=== PATIENT | female | born 2000 | race Caucasian/White ===

== ENCOUNTER → 2020-07-23 08:50 | Outpatient (CLI) | payer OTHER, SELFPAY ==
--- NOTE | 2020-07-23 08:56 | US_ITS ---
STUDY: ABDOMINAL ULTRASOUND - RIGHT UPPER QUADRANT REASON FOR VISIT: Female, 19 years old RUQ PAIN, NAUSEA AFTER EATING X 1 WEEK TECHNIQUE: Ultrasound evaluation of the right upper quadrant was performed with real-time and static lemus-scale imaging. TECHNICAL QUALITY: Adequate. COMPARISON: None. FINDINGS: Liver: The liver measures 17.1 cm. There is normal echogenicity of the liver. The bile ducts are within normal limits. There is hepatic color flow. The direction of portal flow is hepatopetal. There is no demonstrated mass lesion. Gallbladder: Normal distended gallbladder. The gallbladder wall measures 1.3 mm. There is a negative sonographic Aguila''s sign. There is no pericholecystic fluid. There are no gallstones. Common Bile Duct (C.B.D.): The common bile duct measures 2.0 mm. Pancreas: Normal size of the head, body and tail of the pancreas. There is normal echogenicity of the pancreas. There is no demonstrated pancreatic mass or cyst. Right Kidney: Normal size of the right kidney. The right kidney measures 11 cm x 5.6 cm x 4.3 cm. Normal renal cortex. The right cortex measures 1.5 cm. There is no demonstrated renal mass or cyst. There is no right hydronephrosis. US/Abdomen Limited IMPRESSION: Normal right upper quadrant ultrasound examination. Electronically Signed: Sameer Taylor, at 15:47 EDT , Service support ,
== END ==
LOC: US 08:51
PROVIDERS: PCP Nurse Practitioner; Referring Provider Internal Medicine; Visit Provider Internal Medicine
DX: R10.11 Right upper quadrant pain (principal)
CPT/HCPCS: 76705

== ENCOUNTER 2020-10-20 15:43 | Emergency (ER) | payer OTHER, SELFPAY ==
[2020-10-20 15:44] VITALS: BP 161/101; PULSE 118; RESP 16; TEMP 36.2; O2SAT 98; BMI 44.0
--- NOTE | 2020-10-20 16:04 | ED.DCSUM_ITS ---
History of Present Illness Chief Complaint: Nausea/Vomiting Informant: Patient Narrative: Patient is a 19-year-old G2, P1 at approximately 15 weeks who presents to the emergency department for nausea/vomiting. She states she has not been able to keep anything down since Monday. She has been taking Zofran as well as likely just. This has not been giving her significant relief. She called her DIRECTOR OF PARTNER MARKETING today who referred her to the emergency department. She states she had a mild headache but otherwise has no other symptoms. She did have some vomiting with her previous but never had to come to the emergency department for it. Her last did ended in section. She denies any issues with this . She denies any chest pain, shortness of breath or cough. No fevers or chills. No abdominal pain. No diarrhea. No urinary symptoms. No vaginal bleeding. Denies smoking, drinking. Past Medical History - Allergies and Home Meds Allergies/Adverse Reactions: Allergies No Known Allergies Allergy (Verified 10/20/20 15:45) Primary Care Physician: Octavia Ruiz ASSURANCE AUDITOR, ASSURANCE AUDITOR-C [Primary Care Provider] - Prior records reviewed: Yes Past Medical History: None Surgical History: - - section Smoking Status: Never smoker Review of Systems All systems negative except as indicated General: Denies: Chills, Fever, Sweats Eyes: Denies: Visual changes - bilaterally, Diplopia ENT: Denies: Rhinorrhea, Sore throat Cardiovascular: Denies: Chest pain, Palpitations Respiratory: Denies: Dyspnea, Cough, Dyspnea on exertion Gastrointestinal: Reports: Nausea, Vomiting. Denies: Abdominal pain, Diarrhea, Melena, Hematochezia Genitourinary: Denies: Dysuria, Hematuria, Frequency Musculoskeletal: Denies: Back pain, Extremity Pain Skin: Denies: Rash, Wounds Neurological: Reports: Headache. Denies: Weakness, Numbness Physical Exam Vital Signs/Narrative: Vital Signs Temp Pulse Resp BP Pulse Ox 10/20/20 15:44 97.2 F L 118 H 16 161/101 H 98 Inital Vital Signs reviewed: Yes General: Well nourished, Well developed, No Acute Distress Head: Normocephalic, Atraumatic Eyes: Perrl, EOMI ENT: Moist mucous membranes, No rhinorrhea Neck: Supple, Nontender Cardiovascular: Regular rhythm, No murmurs, Tachycardia Respiratory: No distress, CTA bilaterally, Chest nontender Abdomen: Soft, Nontender, Nondistended, Normal bowel sounds Back: Nontender, Normal Inspection Extremities: Nontender. Negative for: Edema, Calf Tenderness Skin: Normal color, No rash Neurological: Alert, Oriented x3, Cranial nerves II-XII grossly intact, Normal Strength, Normal Sensation Psychological: Normal affect, Normal Mood Diagnostic/Tx/Re-eval - Medical Decision Making Patient presents emergency department for nausea/vomiting at 15 weeks . Upon arrival to the emergency department she is mildly tachycardic but otherwise has normal vital signs. She is in no acute distress. Will check basic lab work to evaluate electrolyte status. We will give IV fluids and Zofran. She has been on Zofran previously. Patient did not have any episodes of vomiting throughout ED stay. She did have ketonuria so she was given a second bolus of D5 normal saline. Patient going to contact her DIRECTOR OF PARTNER MARKETING in the morning and discuss possibly increasing her Diclegis. She does feel comfortable being discharged home at this time. She otherwise has been stable throughout ED stay. Will discharge home in stable condition. All questions were answered. ED Disposition - Plan for ED Patient: Disposition: Home or Assisted Living Diagnosis: Vomiting affecting Instructions: ED Hyperemesis Gravidarum Referrals: Octavia Ruiz NP, ASSURANCE AUDITOR-C [Primary Care Provider] - Additional Instructions: Please contact your DIRECTOR OF PARTNER MARKETING tomorrow for follow-up exam and potentially increase nausea medications.
[2020-10-20] MEDS: Ondansetron 4 MG/2 ML Vial IV (16:33)
[2020-10-20] MEDS: 0.9% Normal Saline 1,000 ML 999 ML IV (16:33)
[2020-10-20 16:41] LABS: Absolute Lymphocyte Count 1.28 X10^3/uL (0.83-4.51); Absolute Neutrophil Count 9.8 X10^3/uL (2.0-7.7); Basophil# 0.03 X10^3/uL; Basophil% 0.3 % (0-1); Eosinophil# 0.16 X10^3/uL; Eosinophils% 1.4 % (0-5); Hematocrit 36.4 % (37-47); Hemoglobin 11.9 g/dL (12.0-15.0); Lymphocyte # 1.28 X10^3/ul (4.0); Lymphocyte % 10.9 % (19-41); Mean Corp Hgb Conc 32.7 g/dL (32-36); Mean Corpuscular Volume 82.5 fL (81-99); Monocyte# 0.46 X10^3/uL; Monocyte% 3.9 % (0-10); NRBC Flagged by Analyzer 0 % (0-5); Neutrophil % 83.2 % (47-70); Platelet Count 330 K/mm3 (150-450); RBC Distribution Width CV 13.3 % (11.6-14.6); Red Blood Count 4.41 M/mm3 (4.2-5.4); White Blood Count 11.8 K/mm3 (4.4-11.0)
[2020-10-20 16:57] LABS: ALB/GLOB Ratio 0.8 RATIO (0.9-2.4); AST(SGOT) 9 U/L (15-37); Alanine Aminotransfer ALT/SGPT 14 U/L (13-56); Albumin, Serum 3.2 g/dL (3.2-5.0); Alkaline Phosphatase 80 U/L (45-117); Anion Gap 10 (5-15); BUN 8 mg/dL (7-18); BUN/Creat Ratio 14.6 RATIO (10-20); Calcium,Total 8.9 mg/dL (8.5-10.1); Chloride 107 mmol/L (98-107); Creatinine, Serum 0.55 mg/dL (0.55-1.02); EST Glomerular Filtration Rate 147 mL/min (>60); Est Glom Filt Rate - Afr Amer 178 mL/min (>60); Estimated Creatinine Clearance 133.84 ml/min; Globulin 4.1 g/dL (2.2-4.2); Glucose 71 mg/dL (74-106); Potassium 3.5 mmol/L (3.5-5.1); Protein, Total 7.3 g/dL (6.4-8.2); Sodium Level 137 mmol/L (136-145)
[2020-10-20 17:49] LABS: Squamous Epithelial Cells - UA 0 SEEN /hpf (5-10)
[2020-10-20 18:00] VITALS: BP 139/69; PULSE 96; RESP 16; O2SAT 100
[2020-10-20 18:02] LABS: Color, Urine Yellow (Yellow); Glucose, Dipstick Normal (Normal); Ketone-Dipstick 150 mg/dl (Negative); Leukocyte Esterase-Dipstick 25 /ul (Negative); Nitrite-Dipstick Negative (Negative); Occult Blood-Urine 10 /ul (Negative); Protein-Dipstick 30 mg/dl (Negative); Specific Gravity, Urine 1.025 (1.002-1.030); Urine Bilirubin Dipstick 1 mg/dL (Negative); Urine Clarity Sl. Cloudy (Clear); Urine Urobilinogen 4 mg/dl (Normal)
[2020-10-20] MEDS: Dextrose 5%/0.9% NaCl 1,000 ML 250 ML IV (18:16)
[2020-10-20 18:20] LABS: Bacteria 2+ /hpf (None Seen); Mucous, Urine 4+ /hpf (<or=2+); Red Blood Cells-Urine 0-5 SEEN /hpf (0-5); White Blood Cells 0-5 SEEN /hpf (0-5)
[2020-10-20 21:19] VITALS: BP 123/75; PULSE 86; RESP 16; O2SAT 98
== END 2020-10-20 21:20 | disposition home or self-care (01) ==
PROVIDERS: Emergency Provider Emergency Medicine; PCP Nurse Practitioner
DX: O21.9 Vomiting of pregnancy, unspecified (principal); Z3A.15 15 weeks gestation of pregnancy
CPT/HCPCS: 80053; 81001; 85025; 96361; 96374; 99283; J7030; A4216; J2405

== ENCOUNTER 2020-11-24 18:31 | Outpatient (CLI) | payer OTHER, SELFPAY ==
[2020-11-24] VITALS (8 sets, daily range): BP systolic 119–134; BP diastolic 56–82; PULSE 85–100; TEMP -17.7–37.1; O2SAT 97; BMI 44.1
[2020-11-24] MEDS: Lactated Ringers 1,000 ML 999 ML IV (19:55)
[2020-11-24 20:05] LABS: Hematocrit 34.1 % (37-47); Hemoglobin 11.2 g/dL (12.0-15.0); Mean Corp Hgb Conc 32.8 g/dL (32-36); Mean Corpuscular Hgb 27.3 pg (27.0-32.0); Mean Platelet Vol. 10.4 fl (6.2-12.0); Platelet Count 380 K/mm3 (150-450); RBC Distribution Width CV 13.7 % (11.6-14.6); RBC Distribution Width SD 40.9 fl (35.1-43.9); Red Blood Count 4.11 M/mm3 (4.2-5.4); White Blood Count 12.4 K/mm3 (4.4-11.0)
[2020-11-24] MEDS: Ondansetron 4 MG/2 ML Vial IV (20:19)
[2020-11-24 20:21] LABS: ALB/GLOB Ratio 0.7 RATIO (0.9-2.4); AST(SGOT) 6 U/L (15-37); Alanine Aminotransfer ALT/SGPT 11 U/L (13-56); Albumin, Serum 2.8 g/dL (3.2-5.0); Alkaline Phosphatase 79 U/L (45-117); Anion Gap 10 (5-15); BUN 5 mg/dL (7-18); BUN/Creat Ratio 11.7 RATIO (10-20); Bilirubin, Direct 0.06 mg/dL (0.00-0.30); Calcium,Total 8.9 mg/dL (8.5-10.1); Chloride 108 mmol/L (98-107); Creatinine, Serum 0.43 mg/dL (0.55-1.02); EST Glomerular Filtration Rate 196 mL/min (>60); Est Glom Filt Rate - Afr Amer 237 mL/min (>60); Globulin 3.9 g/dL (2.2-4.2); Glucose 73 mg/dL (74-106); Potassium 3.2 mmol/L (3.5-5.1); Protein, Total 6.7 g/dL (6.4-8.2); Sodium Level 140 mmol/L (136-145)
[2020-11-24] MEDS: 0.9 % NaCl (Sterile) Posiflush 10 mL IV (20:55)
--- NOTE | 2020-11-25 08:27 | OB.TRI.NOTE ---
History of Present Illness Date of Service: 11/24/20 Was patient seen by the physician?: No Reason For Visit: N/V, ELEVATED BLOOD PRESSURE Date of Service: 11/24/20 Final JADA: 04/12/21 Final JADA Source: US <20 weeks Gestational age: 20 Weeks and 2 Days Allergies No Known Allergies Allergy (Verified 11/24/20 19:32) Laboratory Studies: Laboratory Tests 11/24/20 11/24/20 Range/Units 19:55 19:55 WBC 12.4 H (4.4-11.0) K/mm3 RBC 4.11 L (4.2-5.4) M/mm3 Hgb 11.2 L (12.0-15.0) g/dL Hct 34.1 L (37-47) % MCV 83.0 (81-99) fL MCH 27.3 (27.0-32.0) pg MCHC 32.8 (32-36) g/dL RDW Std Deviation 40.9 (35.1-43.9) fl RDW Coeff of Jonnathan 13.7 (11.6-14.6) % Plt Count 380 (150-450) K/mm3 MPV 10.4 (6.2-12.0) fl Sodium 140 (136-145) mmol/L Potassium 3.2 L (3.5-5.1) mmol/L Chloride 108 H (98-107) mmol/L Carbon Dioxide 22.0 (21.0-32.0) mmol/L Anion Gap 10 (5-15) BUN 5 L (7-18) mg/dL Creatinine 0.43 L (0.55-1.02) mg/dL Estim Creat Clear Calc 171.20 ml/min Est GFR (MDRD) Af Amer 237 (>60) mL/min Est GFR (MDRD) Non-Af 196 (>60) mL/min BUN/Creatinine Ratio 11.7 (10-20) RATIO Glucose 73 L (74-106) mg/dL Calcium 8.9 (8.5-10.1) mg/dL Total Bilirubin 0.30 (0.20-1.00) mg/dL Direct Bilirubin 0.06 (0.00-0.30) mg/dL AST 6 L (15-37) U/L ALT 11 L (13-56) U/L Alkaline Phosphatase 79 (45-117) U/L Total Protein 6.7 (6.4-8.2) g/dL Albumin 2.8 L (3.2-5.0) g/dL Globulin 3.9 (2.2-4.2) g/dL Albumin/Globulin Ratio 0.7 L (0.9-2.4) RATIO Physical Exam Vitals: Vital Signs Temp Pulse BP Pulse Ox 98.5 F 88 134/75 H 97 11/24/20 20:01 11/24/20 20:31 11/24/20 20:31 11/24/20 20:01 NST - FHR Rate Baby A Baseline: 150 Impression/Plan 19 YOF @ 20w w/ n/v and elevated bp in ED. Bp appropriate on L&D, f/u in office as scheduled. NO evidence of preeclampsia
== END 2020-11-24 21:00 | disposition home or self-care (01) ==
LOC: WPOUT 18:34 → OBT 18:34
PROVIDERS: PCP Nurse Practitioner; Visit Provider Obstetrics & Gynecology
DX: O26.892 Other specified pregnancy related conditions, second trimester (principal); Z3A.20 20 weeks gestation of pregnancy; R11.2 Nausea with vomiting, unspecified; R03.0 Elevated blood-pressure reading, without diagnosis of hypertension
CPT/HCPCS: 96361; 96374; 96375; 36415; 59025; 59050; 80053; 80076; 85027; 99218; G0378

== ENCOUNTER 2021-03-23 00:20 | Outpatient (CLI) | payer OTHER, SELFPAY ==
[2020-11-24 19:23] VITALS: BMI 44.1
[2021-03-23 00:42] VITALS: BP 110/61; PULSE 86; TEMP 36.5
[2021-03-23 00:46] VITALS: O2SAT 98
[2021-03-23 00:50] VITALS: BMI 46.5
--- NOTE | 2021-03-23 01:13 | OB.TRI.NOTE ---
HPI - General HPI Narrative ADITYA DOMINGUEZ, is a 20 F who presents for decreased movement at 37w1d. Maternal Data Information Final JADA: 04/12/21 Final JADA Source: US <20 weeks Gestational age: 37w1d PFSH PFSH Home Medications Prenatabs FA 1 tab PO DAILY 11/14/16 [History Last Taken 03/22/21 18:00] iron 03/23/21 [History Last Taken 03/22/21 18:00] Allergy/AdvReac Type Severity Reaction Status Date / Time No Known Allergies Allergy Verified 03/23/21 00:52 Social History Smoking Status: Former smoker History Elective abortions Hx Para 0 Spontaneous abortions Hx # Term Pregnancies Ectopic pregnancies Hx # Pregnancies Multiple births # of living children NST FHR Rate Baby A Variability:: Moderate Accelerations:: 15 x 15 Decelerations:: None NST Reactive:: Yes Uterine Activity:: Irregular, mild Assessment & Plan (1) Decreased movement: PLAN: 1) Reactive NST 2) D/C home
== END 2021-03-23 01:27 | disposition home or self-care (01) ==
LOC: WPOUT 00:31 → WP 00:31
PROVIDERS: PCP Nurse Practitioner; Visit Provider Advanced Practice Midwife
DX: O36.8130 Decreased fetal movements, third trimester, not applicable or unspecified (principal); Z3A.37 37 weeks gestation of pregnancy; Z87.891 Personal history of nicotine dependence
CPT/HCPCS: 59025; 59050; 99218; G0378

== ENCOUNTER 2021-04-05 09:20 | Inpatient (IN) | payer OTHER, SELFPAY ==
[2020-11-24 19:23] VITALS: BMI 44.1
--- NOTE | 2021-03-31 11:21 | PCM.HP.BLA ---
History and Physical Date of Admission: 04/05/21 HPI: The patient is a 20 year old female presenting for pre-operative visit. She is scheduled for , for previous c/s and 39 weeks gestation on 04/05/21. Procedure discussed along with risks, benefits and complications. Other alternatives discussed for management. Consent form signed? Yes. ? ? PAST MEDICAL HISTORY PAST MEDICAL HISTORY Diagnosis Date ? Anemia complicating , third trimester 01/19/2021 ? Depression 06/29/2015 ? Overweight 06/23/2011 ? PCOS (polycystic ovarian syndrome) 10/28/2015 ? Primary dysmenorrhea 10/28/2015 ? ? PAST SURGICAL HISTORY PAST SURGICAL HISTORY Procedure Laterality Date ? SECTION HX ? 02/25/2017 ? ? ? CURRENT MEDICATIONS Current Outpatient Medications Medication Sig Dispense Refill ? ferrous sulfate 325 mg (65 mg iron) tablet Take 1 tablet by mouth daily with breakfast. 30 tablet 3 ? cetirizine (ZYRTEC) 10 mg tablet Take 1 tablet by mouth once daily. 30 tablet 1 ? Novhzdrb-Hy-Lzp-Fe-FA ( VITAMIN) tab Take 1 tablet by mouth. ? ? ? No current facility-administered medications for this visit. ? ? ALLERGIES: Seasonal Allergies ? PERSONAL HISTORY: SOCIAL HISTORY Social History ? Tobacco Use ? Smoking status: Never Smoker ? Smokeless tobacco: Never Used Vaping Use ? Vaping Use: Never used Substance Use Topics ? Alcohol use: No ? Drug use: No ? FAMILY HISTORY: FAMILY HISTORY FAMILY HISTORY Problem Relation Age of Onset ? Thyroid Mother ? ? other (hysterectomy) Mother ? ? No Known Problems Father ? ? No Known Problems Sister ? ? No Known Problems Sister ? ? No Known Problems Brother ? ? Thyroid Maternal Grandmother ? ? Graves disease ? Hypertension Maternal Grandmother ? ? Diabetes Maternal Grandmother ? ? Hypertension Paternal Grandfather ? ? Breast Cancer Other ? ? great aunt in early 30s ? ? REVIEW OF SYMPTOMS: GENERAL: denies fevers or chills ENDOCRINOLOGY: has not been on steroids Cardiology : denies palpitations or chest pain Respiratory: denies SOB or cough Hematology: denies history of prolonged bleeding or easy bruising or VTE Allergy: Denies history of personal or family history of allergy to anesthesia ? PHYSICAL EXAMINATION: ? VITALS: Last menstrual period 07/06/2020. ? GENERAL: The patient is well nourished, well hydrated in no acute distress. , The patient is oriented to time, place, and person. NECK: Supple. No lynphadenopathy, normal thyroid, no thyromegaly. LUNGS: Clear to auscultation bilaterally. no wheezes, rhonchi or rales HEART: Regular rate and rhythm, Normal heart sounds and No murmurs or gallops abd- soft, nontender, gravid ? IMPRESSION: Estimated Date of Delivery: 04/12/21 for repeat c/s ? PLAN: The risks/benefits/alternatives and personal involved for the planned delivery were reviewed with the patient. Her questions were answered to her satisfaction and she desires to proceed. Consent was signed. I reviewed with her postop instructions and expectations. ? ? //I have reviewed and updated past medical and surgical history, medications and allergies . This H&P was completed in my office on 03/31/2021. Assessment & Plan Assessment/Plan (1) 39 weeks gestation of : (2) Previous delivery affecting : (3) Supervision of other high risk pregnancies, third trimester: (4) Maternal obesity syndrome in third trimester: (5) Obesity, Class III, BMI 40-49.9 (morbid obesity):
[2021-04-05] VITALS (13 sets, daily range): BP systolic 93–121; BP diastolic 43–70; PULSE 70–89; RESP 12–18; TEMP 36.1–36.7; O2SAT 95–99; BMI 47.4
[2021-04-05] MEDS: Lactated Ringers 1,000 ML 999 ML IV (09:50)
[2021-04-05 10:47] LABS: Absolute Lymphocyte Count 1.89 X10^3/uL (0.83-4.51); Basophil# 0.05 X10^3/uL; Basophil% 0.5 % (0-1); Eosinophil# 0.32 X10^3/uL; Eosinophils% 2.9 % (0-5); Hematocrit 34.2 % (37-47); Lymphocyte # 1.89 X10^3/ul (0.83-4.51); Lymphocyte % 17.3 % (19-41); Mean Corp Hgb Conc 32.2 g/dL (32-36); Mean Corpuscular Hgb 27.4 pg (27.0-32.0); Mean Corpuscular Volume 85.1 fL (81-99); Mean Platelet Vol. 10.4 fl (6.2-12.0); Monocyte% 5.5 % (0-10); NRBC Flagged by Analyzer 0 % (0-5); Neutrophil # 7.98 X10^3/uL (2.7-7.7); Neutrophil % 73.1 % (47-70); Platelet Count 366 K/mm3 (150-450); RBC Distribution Width CV 15.7 % (11.6-14.6); RBC Distribution Width SD 48.1 fl (35.1-43.9); Red Blood Count 4.02 M/mm3 (4.2-5.4); White Blood Count 10.9 K/mm3 (4.4-11.0)
[2021-04-05] MEDS: Acetaminophen 500 MG Tablet 1000 MG PO ×3 (11:00→22:17)
[2021-04-05] MEDS: Lactated Ringers 1,000 ML 150 ML IV (11:00)
[2021-04-05] MEDS: Sodium Citrate/Citric Acid 30 ML UDC PO (11:53)
--- NOTE | 2021-04-05 12:53 | EX.PCM.OBRPT ---
Assessment & Plan (1) 39 weeks gestation of : (2) Previous delivery affecting : (3) Supervision of other high risk pregnancies, third trimester: (4) Maternal obesity syndrome in third trimester: (5) Obesity, Class III, BMI 40-49.9 (morbid obesity): Maternal Data Information Final JADA: 04/12/21 Gestational age: 39 0/7 Details Operative Information Date of Procedure: 04/05/21 Pre-Operative Diagnosis: previous c/s Post-Operative Diagnosis: same Indications for : Repeat Elective Classification: Scheduled Procedure Type: low transverse corrections counselor #1: Yogi Johnson Type of Anesthesia: Spinal Special Medications: duramorph Antibiotic Given: Ancef 3 grams IV x1 Drain: Nicholson to straight drain Estimated Blood Loss: 800 Fluids Replaced: 1000 Procedure Start Time: 12:22 Procedure Stop Time: 12:58 Time of Delivery: 12:27 Findings Description of Procedure: The patient was taken to the operating room. She was prepped and draped in the dorsal supine position with a leftward tilt. A Pfannenstiel skin incision was made approximately 2 cm above the symphysis pubis and carried through to underlying layer fascia with the scalpel. The fascia was incised incised in the midline and extended laterally with the Estevez scissors. The fascia was dissected off the rectus muscles with blunt and sharp dissection. The rectus muscles were in the midline and the peritoneum was entered bluntly. The peritoneal incision was stretched and the bladder blade was placed. The Felipe O retractor was then placed in the usual fashion. Hand was placed around the bottom portion of the retractor to make sure no bowel or other abdominal contents were trapped underneath it. The uterine incision was made in a low transverse fashion with the scalpel and extended superiorly and inferiorly with blunt dissection. The amniotic membranes were ruptured bluntly and clear amniotic fluid returned. The 's head was brought to the incision in the flexed position but was unable to be engaged and delivered with just fundal traction. The vacuum was placed on the flexion point and pressure created 550 mmHg. I pulled with one pull and no pop offs with some fundal pressure in the head then easily delivered and the vacuum was removed. The remainder of the infant was delivered with gentle traction and fundal pressure in the standard fashion. The mouth and nares were bulb suctioned. The cord was clamped and cut as the infant was stimulated. Cord clamping was delayed. The infant was handed off to the waiting nursing staff. The placenta was delivered with fundal massage and gentle traction in the standard fashion. The uterus was exteriorized and cleared of all clots and debris. The cervix was dilated with a ring forcep. The uterine incision was closed with #1 Vicryl in a running locked fashion. A second layer of the same suture was used in an imbricating fashion. The incision was examined and was found to be hemostatic. The uterus was placed back into the peritoneal cavity and hemostasis was again confirmed. The rectus muscles were examined and any bleeding was Bovie cauterized. The parietal peritoneum and rectus muscles were closed en bloc with an 0 Vicryl running suture. The surgical teams outer gloves were then changed. The rectus fascia was examined and any bleeding was Bovie cauterized and the rectus fascia was closed with #1 PDS suture in a running standard fashion. The subcutaneous tissue was examining and any bleeding was Bovie cauterized. The subcutaneous tissue was reapproximated with 3-0 Vicryl suture. The skin was closed in a subcuticular fashion by the BUSINESS SERVICES DIRECTOR with me present in the labor and delivery suite. I performed the remainder of the procedure with assistance. The sociology research assistant provided tissue retraction, tissue manipulation, exposure during the surgery and assistance with closure. All sponge, lap, and needle counts were correct. The patient was taken to her room for recovery in a stable condition. Presentation: Positive for Vertex Amniotic Membrane Rupture Type: Artificial Amniotic Fluid Description: Clear Placental Delivery Description: Expressed Placenta Disposition: [facility] Specimen(s) Sent to Pathology: none Cord Vessel Description: 3 Vessels Cord Entanglement: None Infant A Gender: Male (Jose) (1 minute): 8 (5 minute): 9 Delayed Cord Clamping: Yes Complications Complications: none
[2021-04-05] MEDS: Oxytocin 30 units/NS 500 ml 30 UNITS/500 ML IV.SOLN 167 UNITS IV (13:25)
[2021-04-05] MEDS: Ketorolac 30 MG/ML Syringe IV ×2 (13:38→19:55)
[2021-04-05] MEDS: Lactated Ringers 1,000 ML 100 ML IV (16:55)
[2021-04-05] MEDS: 0.9% Saline Lock 10 ML Syringe IV (19:56)
[2021-04-05] MEDS: Enoxaparin 40 MG/0.4 ML Syringe SC (22:18)
[2021-04-06] VITALS: BP 102/57; PULSE 73; RESP 16; TEMP 36.2; O2SAT 96
[2021-04-06] MEDS: Ketorolac 30 MG/ML Syringe IV ×2 (03:14→09:36)
[2021-04-06] MEDS: 0.9% Saline Lock 10 ML Syringe IV ×2 (03:15→09:37)
[2021-04-06] MEDS: Acetaminophen 500 MG Tablet 1000 MG PO ×4 (03:57→22:02)
[2021-04-06 03:59] VITALS: BP 105/58; PULSE 63; RESP 16; TEMP 36.2; O2SAT 97
[2021-04-06 05:51] LABS: Hematocrit 32.2 % (37-47); Hemoglobin 10.4 g/dL (12.0-15.0); Mean Corp Hgb Conc 32.3 g/dL (32-36); Mean Corpuscular Hgb 27.8 pg (27.0-32.0); Mean Corpuscular Volume 86.1 fL (81-99); Mean Platelet Vol. 10.1 fl (6.2-12.0); Platelet Count 301 K/mm3 (150-450); RBC Distribution Width CV 15.9 % (11.6-14.6); RBC Distribution Width SD 49.4 fl (35.1-43.9); Red Blood Count 3.74 M/mm3 (4.2-5.4); White Blood Count 13.1 K/mm3 (4.4-11.0)
[2021-04-06 08:00] VITALS: BP 98/55; PULSE 74; RESP 16; TEMP 36.3
--- NOTE | 2021-04-06 08:55 | PN.OBGYN_ITS ---
Subjective Subjective Pain controlled Objective Data Objective Data Vital Signs: Vital Signs Temp Pulse Resp BP Pulse Ox 97.2 F L 63 16 105/58 L 97 04/06/21 03:59 04/06/21 03:59 04/06/21 03:59 04/06/21 03:59 04/06/21 03:59 Oxygen Delivery Method Room Air Weight: 267 lb 9.6 oz Body Mass Index (BMI) 47.4 Intake & Output: Intake and Output for Last 24 Hours 04/04/21 04/05/21 04/06/21 23:59 23:59 23:59 Intake Total 5385.83 / 5385.83 Output Total 1999 200 / 200 Balance 3385.83 / 3385.83 -200 / -200 Lab / Micro Data Result Diagrams: 04/06/21 05:45 Labs: Laboratory Results - last 24 hr 04/05/21 09:50: WBC 10.9, RBC 4.02 L, Hgb 11.0 L, Hct 34.2 L, MCV 85.1, MCH 27.4, MCHC 32.2, RDW Std Deviation 48.1 H, RDW Coeff of Jonnathan 15.7 H, Plt Count 366, MPV 10.4, Immature Gran % (Auto) 0.700, Neut % (Auto) 73.1 H, Lymph % (Auto) 17.3 L, Fountain % (Auto) 5.5, Eos % (Auto) 2.9, Baso % (Auto) 0.5, Absolute Neuts (auto) 8.0 H, Absolute Lymphs (auto) 1.89, Nucleated RBC % 0 04/05/21 09:50: Blood Type B POSITIVE, Antibody Screen NEGATIVE 04/06/21 05:45: WBC 13.1 H, RBC 3.74 L, Hgb 10.4 L, Hct 32.2 L, MCV 86.1, MCH 27.8, MCHC 32.3, RDW Std Deviation 49.4 H, RDW Coeff of Jonnathan 15.9 H, Plt Count 301, MPV 10.1 Physical Exam Const alert, oriented x3 and no apparent distress HEENT normocephalic GI soft to palpation, non-tender and non-distended GI Narrative: fundus firm, mid & below umbilicus Incision - bandage c/d/i Extremity normal to inspection and no calf tenderness Assessment & Plan (1) Previous delivery affecting : COMMENT: POD#1 PLAN: Heme - HDS, CBC reviewed ID - AF, no signs infection - no issues GI - ADAT Routine care
[2021-04-06] MEDS: Enoxaparin 40 MG/0.4 ML Syringe SC ×2 (09:36→22:02)
[2021-04-06] MEDS: Senna/Docusate Sodium 1 Tablet PO (10:25)
--- NOTE | 2021-04-06 11:01 | CASEMGMT ---
Social Work Brief Assessment Labor and Delivery Unit Refer documentation below for further details. Date of Referral/Notification: 04/06/2021 Time of Referral: 00:50 Referred By: Marie Longoria Reason for Referral: History of anxiety and depression Date of Intervention: 04/06/2021 Time of Intervention: 09:45 Informant: Medical record and mother of baby (MOB) Assessment: SW received referral due to history of anxiety and depression. Met with MOB and FOB/, Hilda in room. Introduced role and reason for referral. MOB discussed mental health history and states never treated with medication. MOB states able to self-cope and has good support from FOB. Baby boyTheron is MOB and FOB?s second child together. MOB states 2-year-old Aishwarya is home with family. MOB reports has all needs met for baby. Reviewed signs and symptoms of Post- Depression with MOB. MOB provided with educational handouts. MOB denies any questions or concerns at this time. Nursing updated on this worker?s assessment and denied any issues/concerns. Plan: Home with resources provided No further needs requested or indicated. Dianne Nevarez, DIRECTOR MOBILE, OPTOMECHANICAL TECHNICIAN
[2021-04-06 14:00] VITALS: BP 99/51; PULSE 77; RESP 16; TEMP 36.4
[2021-04-06] MEDS: Ibuprofen 600 MG Tablet PO ×2 (16:01→22:02)
[2021-04-06 21:05] VITALS: BP 104/57; PULSE 59; RESP 18; TEMP 36.1
[2021-04-07 02:38] VITALS: BP 131/79; PULSE 75; RESP 18; TEMP 36.2
[2021-04-07] MEDS: Acetaminophen 500 MG Tablet 1000 MG PO (04:14)
[2021-04-07] MEDS: Ibuprofen 600 MG Tablet PO ×2 (04:14→09:22)
[2021-04-07 07:35] VITALS: BP 116/63; PULSE 82; RESP 16; TEMP 36.3
--- NOTE | 2021-04-07 08:19 | PCM.DC.SUM ---
Providers Date of Admission: 04/05/21 Primary Care Physician: Octavia Ruiz NP-C Reason For Visit: C SECTION/ DELIVERED Diagnosis Discharge Diagnosis (1) Status post repeat low transverse section: Status: Acute Code(s): Z98.891 - History of uterine scar from previous surgery Medications at Discharge Home Medications Prenatabs FA 1 tab PO DAILY 11/14/16 iron 03/23/21 Hospital Course Summary of Care Provided Hospital Course: Patient here for scheduled, repeat section. Hospital course was uneventful. Physical Exam Narrative Patient seen at bedside. Pain is controlled with Motrin and Tylenol PO. without difficulty. Desires discharge home today Const alert and no apparent distress General Appearance: cooperative and comfortable Exam Limitations: no limitations HEENT normocephalic Eyes General Eye: normal appearance of both eyes Neck full ROM General: normal visual inspection Chest Chest: symmetrical chest wall rise Resp normal respiratory effort and normal air movement Effort and Inspection: symmetric chest movement Auscultation: clear to auscultation bilaterally Cardio regular rate and regular rhythm GI normal to inspection, nondistended, normoactive bowel sounds Back/Spine normal ROM Extremity full ROM and no calf tenderness General Extremity: normal exam except as noted Skin no rashes or lesions noted Neuro CN's II-XII intact bilaterally Psych mental status grossly normal Weight / BMI Weight Weight: 267 lb 9.6 oz Body Mass Index (BMI) 47.4 ABG / Lab / Microbiology Data Result Diagrams: 04/06/21 05:45 D/C Instructions Discharge Diet: No restrictions May resume sexual activity in: 6-8 weeks Weight Bearing Status: Weight bearing as tolerated Lifting Restrictions: 20 lbs Call your doctor if your incision/area has: Continuous Slow Oozing, Increased Pain/ Swelling, Increased Redness, Foul Smelling Discharge and Swelling at the incision site Call your doctor if you observe: Fever of 101 or Higher, Inability to urinate, Using more than 1 pad per hour, Shortness of breath, Chest pain, Calf discomfort and Uncontrolled pain Remove Dressing in: 5 days Cleanse incision/area with: Soap & Water and Keep Dressing Clean & Dry Please Follow Up With: Marilee Beaulieu CNM When: 1 week in office for incision check or sooner if needed 6 weeks Meaningful Use Info Meaningful Use Diagnoses (Choose all that apply): None applicable Discharge Plan Admission Admit Date/Time: 04/05/21 09:20 Primary Reason for Your Visit: Repeat C/S Attending Provider: Marie Longoria Primary Care Provider: Octavia Ruiz NP Instructions Patient Instructions: After a , : Caring for Yourself Discharge Orders/Prescriptions Prescriptions: Continued Prenatabs FA 1 TABLET tablet 1 tab PO DAILY RF: 0 iron RF: 0 Referrals / Follow Up: Octavia Ruiz NP, FINISHING FRAME RUNNER-C [Primary Care Provider] - Disposition Disposition (needs filled in before D/C Order can be placed): Home, Self Care
[2021-04-07] MEDS: Senna/Docusate Sodium 1 Tablet PO (09:24)
[2021-04-07] MEDS: Enoxaparin 40 MG/0.4 ML Syringe SC (09:24)
== END 2021-04-07 11:00 | disposition home or self-care (01) | DRG 788 ==
PROVIDERS: Admitting Provider Obstetrics & Gynecology; PCP Nurse Practitioner; Visit Provider Obstetrics & Gynecology
PROC: 10D00Z1 Extraction of Products of Conception, Low, Open Approach (ICD-10-PCS; CPT 59514; principal; 2021-04-05 11:45)
DX: O65.5 Obstructed labor due to abnormality of maternal pelvic organs (principal); O34.211 Maternal care for low transverse scar from previous cesarean delivery; O99.214 Obesity complicating childbirth; E66.01 Morbid (severe) obesity due to excess calories; Z3A.39 39 weeks gestation of pregnancy; Z37.0 Single live birth; Z87.891 Personal history of nicotine dependence; Z80.3 Family history of malignant neoplasm of breast; Z82.49 Family history of ischemic heart disease and other diseases of the circulatory system; Z83.3 Family history of diabetes mellitus
CPT/HCPCS: 85025; 85027; 86850; 86900; 86901; 99218; 99251; J7120; A4216; G0378; G0463; J2405

== ENCOUNTER → 2022-07-04 | Outpatient (CLI) | payer OTHER, SELFPAY ==
[2022-07-04 10:35] LABS: Absolute Lymphocyte Count 1.97 X10^3/uL (0.83-4.51); Absolute Neutrophil Count 2.5 X10^3/uL (2.0-7.7); Basophil# 0.04 X10^3/uL; Basophil% 0.8 % (0-1); Eosinophil# 0.15 X10^3/uL; Hematocrit 38.3 % (37-47); Hemoglobin 12.2 g/dL (12.0-15.0); Lymphocyte # 1.97 X10^3/ul (0.83-4.51); Lymphocyte % 39.6 % (19-41); Mean Corp Hgb Conc 31.9 g/dL (32-36); Mean Corpuscular Hgb 27.3 pg (27.0-32.0); Mean Corpuscular Volume 85.7 fL (81-99); Mean Platelet Vol. 10.7 fl (6.2-12.0); Monocyte# 0.34 X10^3/uL; Monocyte% 6.8 % (0-10); NRBC Flagged by Analyzer 0 % (0-5); Neutrophil # 2.47 X10^3/uL (2.7-7.7); Neutrophil % 49.8 % (47-70); Platelet Count 253 K/mm3 (150-450); RBC Distribution Width CV 12.7 % (11.6-14.6); RBC Distribution Width SD 39.4 fl (35.1-43.9); RET-HE 29.5 pg (30-35); Red Blood Count 4.47 M/mm3 (4.2-5.4); Reticulocyte Count 2.17 % (0.5-1.5)
[2022-07-04 10:46] LABS: Erythrocyte Sedimentation Rate 6 mm/hr (0-30)
[2022-07-04 11:12] LABS: AST(SGOT) 19 U/L (15-37); Alanine Aminotransfer ALT/SGPT 46 U/L (13-56); Albumin, Serum 3.7 g/dL (3.2-5.0); Alkaline Phosphatase 73 U/L (45-117); CRP 2.97 mg/L (0.0-3.0); Globulin 3.5 g/dL (2.2-4.2); Protein, Total 7.2 g/dL (6.4-8.2)
[2022-07-06 09:06] LABS: AFP, Tumor Marker 2.9 ng/mL (0.0-4.7); EBV Nuclear Antigen IgG < 18.0 U/mL (0.0-17.9)
== END | disposition home or self-care (01) ==
LOC: LAB 09:31
PROVIDERS: PCP Nurse Practitioner Family; Visit Provider Nurse Practitioner Family
DX: D72.820 Lymphocytosis (symptomatic) (principal); R79.89 Other specified abnormal findings of blood chemistry
CPT/HCPCS: 36415; 80076; 82105; 85025; 85045; 85652; 86140; 86664; 86665

== ENCOUNTER 2023-03-24 07:05 | Day surgery (SDC) | payer OTHER, SELFPAY ==
[2023-03-22 16:12] LABS: Hematocrit 37.1 % (37-47); Hemoglobin 11.8 g/dL (12.0-15.0); Mean Corp Hgb Conc 31.8 g/dL (32-36); Mean Corpuscular Hgb 26.9 pg (27.0-32.0); Mean Corpuscular Volume 84.5 fL (81-99); Platelet Count 338 K/mm3 (150-450); RBC Distribution Width CV 13.2 % (11.6-14.6); RBC Distribution Width SD 40.3 fl (35.1-43.9); Red Blood Count 4.39 M/mm3 (4.2-5.4); White Blood Count 8.3 K/mm3 (4.4-11.0)
[2023-03-22 16:17] LABS: Prothrombin Time (Protime)PT. 13.4 SECONDS (11.7-14.9)
[2023-03-22 16:18] LABS: Partial Thromboplast Time 29.6 Seconds (24.1-36.2)
--- NOTE | 2023-03-23 10:15 | PCM.HP.BLA ---
History and Physical Date of Admission: 03/24/23 HPI: The patient is a 22 year old female presenting for pre-operative visit. She is scheduled for hysteroscopy D&C with IUD insertion, laparoscopic bilateral salpingectomy, for sterilization request and heavy menses with dysmenorrhea on 03/24/23. Procedure discussed along with risks, benefits and complications. Other alternatives discussed for management. Consent form signed? Yes. ? ? PAST MEDICAL HISTORY PAST MEDICAL HISTORY Diagnosis Date ? Anemia complicating , third trimester 01/19/2021 ? Depression 06/29/2015 ? Overweight 06/23/2011 ? PCOS (polycystic ovarian syndrome) 10/28/2015 ? Primary dysmenorrhea 10/28/2015 ? ? PAST SURGICAL HISTORY PAST SURGICAL HISTORY Procedure Laterality Date ? DELIVERY ONLY ? 04/05/2021 ? LTCS ? SECTION HX ? 02/25/2017 ? repeat 04/05/21 ? ? ? CURRENT MEDICATIONS Current Outpatient Medications Medication Sig Dispense Refill ? escitalopram oxalate (LEXAPRO) 10 mg tablet Take by mouth q 24 HR. ? ? ? cetirizine (ZYRTEC) 10 mg tablet Take 1 tablet by mouth once daily. 30 tablet 1 ? No current facility-administered medications for this visit. ? ? ALLERGIES: Seasonal Allergies ? PERSONAL HISTORY: SOCIAL HISTORY Social History ? Tobacco Use ? Smoking status: Never ? Smokeless tobacco: Never Vaping Use ? Vaping Use: Never used Substance Use Topics ? Alcohol use: No ? Drug use: No ? FAMILY HISTORY: FAMILY HISTORY FAMILY HISTORY Problem Relation Age of Onset ? Thyroid Mother ? ? other (hysterectomy) Mother ? ? No Known Problems Father ? ? No Known Problems Sister ? ? No Known Problems Sister ? ? No Known Problems Brother ? ? Thyroid Maternal Grandmother ? ? Graves disease ? Hypertension Maternal Grandmother ? ? Diabetes Maternal Grandmother ? ? Hypertension Paternal Grandfather ? ? Breast Cancer Other ? ? great aunt in early 30s ? ? REVIEW OF SYMPTOMS: GENERAL: denies fevers or chills ENDOCRINOLOGY: has not been on steroids Cardiology : denies palpitations or chest pain Respiratory: denies SOB or cough Hematology: denies history of prolonged bleeding or easy bruising or VTE Allergy: Denies history of personal or family history of allergy to anesthesia ? PHYSICAL EXAMINATION: ? VITALS: Last menstrual period 02/18/2023, not currently . ? GENERAL: The patient is well nourished, well hydrated in no acute distress. , The patient is oriented to time, place, and person. NECK: Supple. No lynphadenopathy, normal thyroid, no thyromegaly. LUNGS: Clear to auscultation bilaterally. no wheezes, rhonchi or rales HEART: Regular rate and rhythm, Normal heart sounds, and No murmurs or gallops ? IMPRESSION: sterilization request, menorrhagia and dysmenorhea ? PLAN: The risks/benefits/alternatives and personal involved for the planned hysteroscopy and D&C with progestin IUD insertion, and laparoscopic bilateral salpingectomy were reviewed with the patient. Her questions were answered to her satisfaction and she desires to proceed. Consent was signed. I reviewed with her postop instructions and expectations. I discussed with the patient if I am unable to safely completely remove the tubes, will perform partial salpingectomy or other sterilization method. Patient is comfortable with this plan. ? ? I have reviewed and updated past medical and surgical history, medications and allergies Assessment & Plan Assessment/Plan (1) Sterilization: (2) Menorrhagia: (3) Encounter for IUD insertion:
--- NOTE | 2023-03-24 | FALS_PTH ---
PATIENT: ADITYA DOMINGUEZ [place] [facility] [id number] AGE/SX: 22/F ROOM: RE03/24/[address]: Dr. Marie Longoria MD : 2000 BED: DIS: 03/24/2023 SPEC #: [id number] RECD: 03/24/23 10:36 STATUS: LAMIN RERonni #: [id number] [place]: 03/24/23 00:[address]: Marie Longoria DEPT: SURGICAL PATHOLOGY RECD BY: Johnathon Becerra ENTERED: 03/24/23 10:37 SP TYPE: FALL TUBES OTHR DR: Jasmin Saenz, BREAK UP WORKER-C Tissues: A - Fallopian tube B - Endometrium, NOS Procedures: Surgery Specimen Level II Surgery Specimen Level IV HEADER OPERATION: Laparoscopic salpingectomy PRE-OP DIAGNOSIS: Sterilization, heavy menses with dysmenorrhea TISSUE SUBMITTED: A - Bilateral fallopian tubes, B - Endometrial curettings MICROSCOPIC DIAGNOSIS A. Bilateral fallopian tubes, salpingectomy: Bilateral fallopian tubes, no pathologic diagnosis. B. Endometrial curettings: Proliferative endometrium. PRADIP:alec 03/27/2023 MICROSCOPIC DESCRIPTION Slides are reviewed. GROSS DESCRIPTION A - Received in fixative is one container labeled with the patient's name and designated bilateral fallopian tubes. The specimen consists of bilateral fallopian tubes including fimbrial ends. One fallopian tube measures 6.0 cm in length and up to 1.0 cm in diameter. The second fallopian tube received in three pieces measures 8.0 cm in length and up to 1.0 cm in diameter. The fallopian tubes are not identified as right or left. Sections reveal unremarkable cut surfaces. Also present in the container are two detached pieces of soft tissue including adipose tissue measuring in aggregate 2.0 x 1.5 x 0.5 cm. Synthetic Soil Blocks Pulper sections are submitted in two cassettes as follows: 1 - intact fallopian tube, 2 - second fallopian tube in multiple pieces. B - Received in fixative is one container labeled with the patient's name and designated endometrial curettings. The specimen consists of multiple fragments of hemorrhagic soft tissue that in aggregate measure 3.0 x 2.5 x 0.3 cm. The specimen is totally submitted in one cassette. / PRADIP:alec 03/24/2023 TC:4 CPT: 34764, 41810 x2
[2023-03-24 07:41] LABS: Internal QC Validated? YES +Cl - CLEAR BKGD; Pregnancy, Urine Negative Negative
[2023-03-24 07:42] VITALS: BP 126/83; PULSE 79; RESP 16; TEMP 36.6; O2SAT 100; BMI 45.3
[2023-03-24] MEDS: Lactated Ringers 1,000 ML 15 ML IV (07:45)
[2023-03-24] MEDS: Acetaminophen 500 MG Tablet 1000 MG PO (07:45)
[2023-03-24] MEDS: Ketorolac 30 MG/ML Syringe IV (07:45)
--- NOTE | 2023-03-24 09:05 | PCM.DC ---
Discharge Instructions Diet Discharge Diet: No restrictions (Increase fluid intake for the next 48 hours.) Activity Discharge Activity: May Shower and May Take a Tub Bath (in 1 week) Return to work on:: 03/29/23 May resume sexual activity in: 1 week Additional Activity Instructions:: Ambulate often the next week after surgery. Nothing in the vagina for 5 days. Dressing / Incision Call your doctor if your incision/area has: Continuous Slow Oozing, Sudden Increased Bleeding, Increased Pain/ Swelling, Increased Redness and Foul Smelling Discharge Call your doctor if you observe: Fever of 101 or Higher Cleanse incision/area with: Soap & Water (leave the skin glue on for at least 10 days, it can get wet) Follow Up Care Please Follow Up With: Marie Longoria MD When: Call [phone] for follow-up appointment as needed or send a [employer] message for nonurgent concerns. Test Results: Test results from this visit will be discussed in further detail at your follow-up appointment, if applicable. Discharge Plan Admission Primary Reason for Your Visit: tubal sterilization, D&C with IUD insertion Attending Provider: Marie Longoria Primary Care Provider: Jasmin Saenz Discharge Orders/Prescriptions Prescriptions: No Action ferrous sulfate [iron] 325 mg (65 mg iron) Tablet 325 mg PO DAILY Referrals / Follow Up: Jasmin Saenz NP-C [Primary Care Provider] - Disposition Disposition (needs filled in before D/C Order can be placed): Home, Self Care
--- NOTE | 2023-03-24 09:07 | PCM.OPRPT ---
Problems Associated Problem List Diagnoses (1) Encounter for IUD insertion: (2) Menorrhagia: (3) Sterilization: Report of Operation Pre-Operative Diagnosis: sterilization request, heavy menses Post-Operative Diagnosis: same Surgery/Procedure Performed:: Hysteroscopy D&C with Liletta IUD insertion and bilateral laparoscopic sterilization Surgeon: Marie Longoria manager medicare marketing: Jyoti Briscoe Type of Anesthesia: General Anesthesiologist: [place] Special Medications: none Specimen's removed: bilateral fallopian tubes, endometrial curettings Drains: none Estimated Blood Loss (mL): 10 Fluids Replaced: 1000 mL Description of Procedure: The patient was taken to the operating room where she was prepped and draped in the dorsolithotomy position. A weighted speculum was placed in the vagina and the anterior lip of the cervix was grasped with a tenaculum. The uterine manipulator was placed and the remainder of the instruments were removed from the vagina. Attention was turned to the abdomen. All port sites were infiltrated with 0.5% Marcaine before skin incisions were made. A 5 mm intraumbilical incision was made. The anterior abdominal wall was tented up with 2 towel clamps while a 5 mm blade less trocar and sleeve were directly inserted. Intraperitoneal placement was confirmed with the laparoscope. The pneumoperitoneum was created and the underlying abdominal contents were intact. The patient was placed in Trendelenburg. Right and left lower quadrant ports were placed under direct visualization lateral to the inferior epigastric vessels. The bowel was swept away and the above findings were noted. The Enseal device was used to clamp seal and transect the antimesenteric portions of the right tube to the cornual insertion of the uterus. The tube was amputated from the uterus and the pedicles were all confirmed to be hemostatic. The same procedure was performed on the contralateral side. The specimens were brought out through a 5 mm port. The pedicles were again examined and found to be hemostatic. The lateral ports were removed under direct visualization and no active bleeding was noted. The pneumoperitoneum was released. The skin incisions were closed with Monocryl suture in a subcuticular fashion and skin glue by the TURF FARMER with me present in the operating suite.. I removed the uterine manipulator. The cervix was serially dilated and the 5 mm hysteroscope was placed. No focal abnormalities were noted in the endometrium. Sharp D&C was performed and the endometrial curettings were handed off for pathology. The uterus sounded to 10 cm. The Liletta IUD was then inserted in the usual sterile fashion. The strings were trimmed to 2 cm. The instruments were removed from the vagina and I performed the vaginal sweep. The procedure was performed by me with assistance other than as dictated above. All sponge and needle counts were correct and the patient was taken to the recovery room in stable condition. Grafts/Implants Used: Liletta IUD Procedure Start Time: 09:12 Procedure Stop Time: 19:36 Complications none Admit VTE Documentation VTE Present on Admission: No VTE Mechan Device Prophylaxis: SCD's Reason prophylaxis not ordered:: Procedure Not Indicated
[2023-03-24] MEDS: Bupivacaine Mpf 0.5% 30 ML VIAL (09:12)
[2023-03-24] MEDS: Levonorgestrel IUD (Liletta) 1 EACH INTRA-UTER (09:34)
[2023-03-24 09:51] VITALS: BP 120/75; BP 126/83; PULSE 97; RESP 16; TEMP 36.3; O2SAT 96
[2023-03-24] MEDS: Lactated Ringers 1,000 ML 75 ML IV (09:55)
[2023-03-24 10:00] VITALS: BP 101/69; BP 126/83; PULSE 57; RESP 16; O2SAT 98
[2023-03-24 10:15] VITALS: BP 112/56; BP 126/83; PULSE 53; RESP 16; TEMP 36.6; O2SAT 97
[2023-03-24] MEDS: HYDROcodone Bitartrate/Apap 5/325 Tablet PO (10:44)
[2023-03-24 10:52] VITALS: BP 126/83
[2023-03-24 11:45] VITALS: BP 126/83; BP 132/78; PULSE 53; RESP 18; TEMP 36.4; O2SAT 99
== END 2023-03-24 11:49 | disposition home or self-care (01) ==
LOC: SDC 07:07 → AC 07:08
PROVIDERS: Anesthesiology; PCP Nurse Practitioner Family; Referring Provider Obstetrics & Gynecology; Visit Provider Obstetrics & Gynecology
PROC: (CPT 58661; principal; 2023-03-24 08:35)
PROC: 0UDB8ZZ Extraction of Endometrium, Via Natural or Artificial Opening Endoscopic (ICD-10-PCS; CPT 58558; 2023-03-24 08:35)
DX: Z30.2 Encounter for sterilization (principal); N92.0 Excessive and frequent menstruation with regular cycle; Z30.430 Encounter for insertion of intrauterine contraceptive device; N94.6 Dysmenorrhea, unspecified; D64.9 Anemia, unspecified; F32.9 Major depressive disorder, single episode, unspecified; F17.200 Nicotine dependence, unspecified, uncomplicated
CPT/HCPCS: 58558; 58300; 58661; 00840; 36415; 81025; 85027; 85610; 85730; 88302; 88305; J7120; C1760; J2405

== ENCOUNTER → 2023-08-25 | Outpatient (CLI) | payer OTHER, SELFPAY | END | disposition home or self-care (01) | PROVIDERS: PCP Nurse Practitioner Family; Referring Provider Nurse Practitioner Family; Visit Provider Nurse Practitioner Family | DX: R00.2 Palpitations (principal) | CPT/HCPCS: 93225; 93226 ==

== ENCOUNTER → 2023-09-01 | Outpatient (CLI) | payer OTHER, SELFPAY ==
--- NOTE | 2023-09-01 13:41 | US_ITS ---
STUDY: ULTRASOUND BREAST - LEFT REASON FOR EXAM: Female, 22 years old. Palpable lump left breast. TECHNIQUE: Axial and longitudinal images of the LEFT breast were performed with a high resolution ultrasound transducer. # OF IMAGES: 15 COMPARISON: None. FINDINGS: LEFT Breast: The upper outer quadrant of the left breast was examined with ultrasound. No sonographic and amount is seen. US/Breast Limited Unilateral IMPRESSION: No sonographic abnormality is seen. ASSESSMENT CATEGORY: BIRADS Category 1: Negative. A letter regarding these results will be sent to the patient by the facility within 30 days. Electronically Signed: Sameer Taylor MD at 14:14 EST ,
== END | disposition home or self-care (01) ==
LOC: OPBI 13:38
PROVIDERS: PCP Nurse Practitioner Family; Referring Provider Nurse Practitioner Family; Visit Provider Nurse Practitioner Family
DX: N63.21 Unspecified lump in the left breast, upper outer quadrant (principal)
CPT/HCPCS: 76642